=== PATIENT | male | born 1930 | race Two or more races ===

== ENCOUNTER 2021-12-02 06:13 | Day surgery (SDC) | payer OTHER ==
[~2021-12-02] VITALS: Ht 170.2 cm; Wt 81.6 kg
[~2021-12-02 06:13] MED LIST: APIX2.5T PO; ATOR20TA PO; CHLO25TA2 PO; FINA5TAB4 PO; LEV50T PO; LISI40TA11 PO; METF-372 PO; TAMS0.4C36 PO; [UNRECOGNIZED DRUG - CODE] OR
[2021-12-02] MEDS ORDERED: ePHEDrine SULFATE 50 MG/ML AMP IV ONE (06:14)
[2021-12-02] MEDS ORDERED: CIPROFLOXACIN 400MG/200ML 200 ML IV ONE (07:10)
[2021-12-02] MEDS ORDERED: fentaNYL CITRATE 100 MCG/2 ML VL ONE (07:35)
[2021-12-02] MEDS ORDERED: MIDAZOLAM HCL 2MG/2ML 2ml VIAL (1mg/ml) ONE (07:35)
[2021-12-02] MEDS ORDERED: ONDANSETRON HCL 4 MG/2 ML VIAL ONE (07:36)
[2021-12-02] MEDS ORDERED: LIDOCAINE 2% (LOCAL ANESTH.) PF 5ml SDV ONE (07:36)
[2021-12-02] MEDS ORDERED: PROPOFOL 10 MG/ML 20 ML IV ONE ×2 (07:36→08:03)
[2021-12-02] MEDS ORDERED: ONDANSETRON HCL 4 MG/2 ML VIAL IV PRN (08:00)
[2021-12-02] MEDS ORDERED: HYDROmorphone HCL 2 MG/ML VL/or syr IV PRN (08:00)
[2021-12-02 09:35] VITALS: BP 149/80
== END 2021-12-02 09:49 | disposition home or self-care (01) ==
LOC: SUR 06:13
PROVIDERS: ATTEND Urology
DX: N35.919 Unspecified urethral stricture, male, unspecified site (principal); I10 Essential (primary) hypertension; E11.9 Type 2 diabetes mellitus without complications; E78.5 Hyperlipidemia, unspecified; Z98.890 Other specified postprocedural states; Z79.899 Other long term (current) drug therapy; Z20.822 Contact with and (suspected) exposure to COVID-19; Z88.0 Allergy status to penicillin
CPT/HCPCS: 52276; 82962; J0744; J2001; J2250; J2405; J2704; J3010; U0003